=== PATIENT | male | born 1980 | race Caucasian/White ===

== ENCOUNTER 2022-10-07 12:56 | Emergency (ER) | payer SELFPAY ==
[~2022-10-07] VITALS: Ht 180 cm; Wt 72.5 kg
[2022-10-07] MEDS ORDERED: NS IV 1000 ML 1,000 ML IV STA ×2 (13:30→15:46)
[2022-10-07] MEDS ORDERED: fentaNYL INJ 100 MCG/2 ML AMP IVP STA (13:30)
--- NOTE | 2022-10-07 13:35 | ED Abdominal Pain ---
General Chief Complaint: Abdominal/GI Problems Stated Complaint: ABD PAIN Nursing Triage Note: PT PRESENTS TO ED WITH COMPLAINTS OF ABD PAIN THAT RADIATES TOHIS BACK THAT WOKE HIM UP THIS AM. PT DENIES URINARY S/S AND REPORTS NORMAL BM. PT STATES OVER THE PAST 1-2 WEEKS HE HAD DULL MILD ABD PAIN. Source of Information: Patient Exam Limitations: No Limitations (SYBIL WHITING) History of Present Illness Date Seen by Provider: Oct 07, 2022 Time Seen by Provider: 13:32 Initial Comments Patient is a 42-year-old male who presents ED with abdominal pain. Abdominal pain started 2 weeks ago dull constant pain in his lower abdomen. This pain increased this morning. Described as sharp radiating from left lower quadrant to the right lower quadrant and into the back. Pain has been constant. Slightly diaphoretic. Patient was brought to ED by EMS. Patient reports taking Aleve over the past 2 weeks. Denies of any dysuria, hematuria, increased urine frequency, vomiting, diarrhea. Patient denies history of previous abdominal surgery. Patient seems uncomfortable. Denies history of kidney stones. History of appendectomy (SYBIL WHITING) Allergies and Home Medications Allergies Coded Allergies: No Known Drug Allergies (Unverified , 10/07/22) Patient Home Medication List Home Medication List Reviewed: Yes (SYBIL WHITING) Hydrocodone/Acetaminophen (Hydrocodone-Acetamin 5-325 mg) 5 Mg-325 Mg Tablet, 1 TAB PO Q4H PRN for PAIN-MODERATE (5-7) Prescribed by: STORM TOPETE on 10/07/22 1632 Ondansetron (Ondansetron Odt) 4 Mg Tab.rapdis, 4 MG SL Q4H PRN for NAUSEA/VOMITING Prescribed by: STORM TOPETE on 10/07/22 163 Tamsulosin HCl (Flomax) 0.4 Mg Cap, 0.4 MG PO DAILY Prescribed by: STORM TOPETE on 10/07/22 1632 Review of Systems Review of Systems Constitutional: No chills, No diaphoresis; malaise EENTM: No Blurred Vision, No Double Vision, No Eye Pain Respiratory: Denies Cough, Denies Orthopnea Cardiovascular: Denies Chest Pain Gastrointestinal: Abdominal Pain; Denies Diarrhea, Denies Nausea, Denies Vomiting Genitourinary: Denies Burning, Denies Discharge, Denies Drainage, Denies Frequency; Flank Pain Musculoskeletal: back pain; No joint pain Skin: No change in color, No change in hair/nails (SYBIL WHITING) All Other Systems Reviewed Negative Unless Noted: Yes (SYBIL WHITING) Past Nmlqtxv-Khkwvw-Vdjkqb Hx Patient Social History Tobacco Use?: Yes Tobacco type used: Cigarettes Smokeless Tobacco Frequency: Current Someday User E-Cig or Vaping type used: Nicotine Use of E-Cig and/or Vaping Dheeraj: Current Someday User Substance use?: Yes Substance type: Marijuana Alcohol Use?: Yes Alcohol Frequency: Couple times a week Pt feels they are or have been: No (SYBIL WHITING) Past Medical History Surgery/Hospitalization HX: SX: APPY (SYBIL WHITING) Physical Exam Vital Signs Vital Signs - First Documented 10/07/22 13:00 Temp 36.0 Pulse 91 Resp 16 B/P (MAP) 150/96 (114) Pulse Ox 95 (BEN ROMAN MD) Vital Signs Capillary Refill : Less Than 3 Seconds (SYBIL WHITING) Height/Weight/BMI Height: '" Weight: lbs. oz. 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, no motor/sensory deficits, alert, normal mood/affect, oriented x 3 (SYBIL WHITING) Progress/Results/Core Measures Results/Orders Lab Results Laboratory Tests Test 10/07/22 13:03 10/07/22 15:58 Range/Units White Blood Count 4.6 4.3-11.0 10^3/uL Red Blood Count 4.58 4.30-5.52 10^6/uL Hemoglobin 14.1 13.3-17.7 g/dL Hematocrit 42 40-54 % Mean Corpuscular Volume 92 80-99 fL Mean Corpuscular Hemoglobin 31 25-34 pg Mean Corpuscular Hemoglobin Concent 34 32-36 g/dL Red Cell Distribution Width 14.0 10.0-14.5 % Platelet Count 157 130-400 10^3/uL Mean Platelet Volume 10.2 9.0-12.2 fL Immature Granulocyte % (Auto) 0 % Neutrophils (%) (Auto) 45 42-75 % Lymphocytes (%) (Auto) 33 12-44 % Monocytes (%) (Auto) 17 H 0-12 % Eosinophils (%) (Auto) 4 0-10 % Basophils (%) (Auto) 1 0-10 % Neutrophils # (Auto) 2.1 1.8-7.8 10^3/uL Lymphocytes # (Auto) 1.5 1.0-4.0 10^3/uL Monocytes # (Auto) 0.8 0.0-1.0 10^3/uL Eosinophils # (Auto) 0.2 0.0-0.3 10^3/uL Basophils # (Auto) 0.0 0.0-0.1 10^3/uL Immature Granulocyte # (Auto) 0.0 0.0-0.1 10^3/uL Sodium Level 138 135-145 MMOL/L Potassium Level 4.1 3.6-5.0 MMOL/L Chloride Level 103 98-107 MMOL/L Carbon Dioxide Level 23 21-32 MMOL/L Anion Gap 12 5-14 MMOL/L Blood Urea Nitrogen 15 7-18 MG/DL Creatinine 0.92 0.60-1.30 MG/DL Estimat Glomerular Filtration Rate 107 BUN/Creatinine Ratio 16 Glucose Level 116 H 70-105 MG/DL Calcium Level 9.0 8.5-10.1 MG/DL Corrected Calcium 9.6 8.5-10.1 MG/DL Total Bilirubin 0.4 0.1-1.0 MG/DL Aspartate Amino Transf (AST/SGOT) 205 H 5-34 U/L Alanine Aminotransferase (ALT/SGPT) 125 H 0-55 U/L Alkaline Phosphatase 117 40-136 U/L Total Protein 8.5 H 6.4-8.2 GM/DL Albumin 3.2 3.2-4.5 GM/DL Lipase 105 H 8-78 U/L Serum Alcohol 137 H <10 MG/DL Urine Color YELLOW Urine Clarity CLEAR Urine pH 6.0 5-9 Urine Specific [place] <=1.005 1.016-1.022 Urine Protein NEGATIVE NEGATIVE Urine Glucose (UA) NEGATIVE NEGATIVE Urine Ketones NEGATIVE NEGATIVE Urine Nitrite NEGATIVE NEGATIVE Urine Bilirubin NEGATIVE NEGATIVE Urine Urobilinogen 0.2 < = 1.0 MG/DL Urine Leukocyte Esterase NEGATIVE NEGATIVE Urine RBC (Auto) 2+ H NEGATIVE Urine RBC 0-2 /HPF Urine WBC NONE /HPF Urine Crystals PRESENT H /LPF Urine Calcium Oxalate Crystals MODERATE H /LPF Urine Amorphous Sediment FEW KAYLIN URATES H /LPF Urine Bacteria NEGATIVE /HPF Urine Casts PRESENT /LPF Urine Hyaline Casts RARE /LPF Urine Mucus SMALL H /LPF Urine Culture Indicated NO Urine Opiates Screen NEGATIVE NEGATIVE Urine Oxycodone Screen NEGATIVE NEGATIVE Urine Methadone Screen NEGATIVE NEGATIVE Urine Propoxyphene Screen NEGATIVE NEGATIVE Urine Barbiturates Screen NEGATIVE NEGATIVE Ur Tricyclic Antidepressants Screen NEGATIVE NEGATIVE Urine Phencyclidine Screen NEGATIVE NEGATIVE Urine Amphetamines Screen POSITIVE H NEGATIVE Urine Methamphetamines Screen POSITIVE H NEGATIVE Urine Benzodiazepines Screen NEGATIVE NEGATIVE Urine Cocaine Screen NEGATIVE NEGATIVE Urine Cannabinoids Screen POSITIVE H NEGATIVE (BEN ROMAN MD) Vital Signs/I&O 10/07/22 10/07/22 13:00 16:38 Temp 36.0 Pulse 91 76 Resp 16 16 B/P (MAP) 150/96 (114) 128/91 Pulse Ox 95 95 (BEN ROMAN MD) Blood Pressure Mean: 114 Departure Communication (PCP) Reviewed previous ER visits, H&P, lab testing. Patient with with lower abdominal pain for the past 2 weeks. This pain became worse today sharp shooting to the left flank. No vomiting but reports nausea. No history of previous abdominal surgery. No urinary symptoms. Differential diagnosis, cystitis, urolithiasis, nephrolithiasis, colitis. CBC, CMP grossly unremarkable. Normal white blood count, kidney function. Slight elevated liver enzymes AST 205, ALT 125. Lipase 105. He has no upper abdominal pain or pain with eating. Urinalysis positive hematuria. History of alcohol use. States he drank 2 beers last night. Alcohol 137. Received [address] abdomen pelvis shows a distal left ureter obstructing stone 3 mm with small to moderate amount of hydronephrosis. Urinalysis without evidence of infection. Patient was given Toradol and fentanyl with improvement of pain. Currently pain-free. Patient request to be discharged. Will discharge with Flomax, pain medication and nausea medication. Urology outpatient follow-up within the next week for reevaluation. If any worsening pain, passing of blood clots to return back to ED. Positive for methamphetamine and THC. Discussed clear liquids for the next 2 or 3 days. Likely chronically elevated lipase and liver enzymes. CT abdomen pelvis noted hepatomegaly recheck with primary care physician of lab work in the next 2 days. (SYBIL WHITING) Impression Primary Impression: Ureterolithiasis Additional Impression: Pancreatitis Disposition: 01 HOME, SELF-CARE Condition: Stable Departure-Patient Inst. Decision time for Depature: 14:57 (SYBIL WHITING) Referrals: [facility],LOCAL PHYSICIAN (PCP) Primary Care Physician Patient Instructions: Kidney stones in adults Add. Discharge Instructions: Recommend following up with [facility] urology [id number]. Take pain medication as prescribed. Flomax to help urinate. Drink plenty water. If any worsening pain, fever to return back to ED. All discharge instructions reviewed with patient and/or family. Voiced understanding. Scripts Ondansetron (Ondansetron Odt) 4 Mg Tab.rapdis 4 MG SL Q4H PRN for NAUSEA/VOMITING, #6 TAB Prov: SYBIL WHITING 10/07/22 Hydrocodone/Acetaminophen (Hydrocodone-Acetamin 5-325 mg) 5 Mg-325 Mg Tablet 1 TAB PO Q4H PRN for PAIN-MODERATE (5-7), #8 TAB Prov: SYBIL WHITING 10/07/22 Tamsulosin HCl (Flomax) 0.4 Mg Cap 0.4 MG PO DAILY, #20 CAP Prov: SYBIL WHITING 10/07/22 ATTENDING PHYSICIAN NOTE: I was physically present as attending physician in the emergency department during the care of this patient, but I was not directly involved in the decision making or delivery of care for this patient. (BEN ROMAN MD) SYBIL WHITING Oct 07, 2022 13:35 BEN ROMAN MD Oct 08, 2022 12:06
[2022-10-07 13:39] LABS: ALBUMIN 3.2 GM/DL (3.2-4.5); POTASSIUM 4.1 MMOL/L (3.6-5.0)
[2022-10-07 13:41] LABS: TOTAL PROTEIN 8.5 GM/DL (6.4-8.2)
[2022-10-07 13:43] LABS: BILIRUBIN,TOTAL 0.4 MG/DL (0.1-1.0)
[2022-10-07 13:45] LABS: CREATININE SERUM 0.92 MG/DL (0.60-1.30)
[2022-10-07 13:46] LABS: BASOPHILS % (AUTO) 1 % (0-10); EOSINOPHILS # (AUTO) 0.2 10^3/uL (0.0-0.3); EOSINOPHILS % (AUTO) 4 % (0-10); HEMATOCRIT 42 % (40-54); HEMOGLOBIN 14.1 g/dL (13.3-17.7); LYMPHOCYTES # (AUTO) 1.5 10^3/uL (1.0-4.0); LYMPHOCYTES % (AUTO) 33 % (12-44); MEAN CORPUSCULAR HEMOGLOBIN 31 pg (25-34); MEAN CORPUSCULAR HGB CONC 34 g/dL (32-36); MEAN CORPUSCULAR VOLUME 92 fL (80-99); MEAN PLATELET VOLUME 10.2 fL (9.0-12.2); MONOCYTES # (AUTO) 0.8 10^3/uL (0.0-1.0); MONOCYTES % (AUTO) 17 % (0-12); NEUTROPHILS # (AUTO) 2.1 10^3/uL (1.8-7.8); NEUTROPHILS % (AUTO) 45 % (42-75); PLATELET COUNT 157 10^3/uL (130-400); WHITE BLOOD COUNT 4.6 10^3/uL (4.3-11.0)
[2022-10-07] MEDS ORDERED: NS 100 ML (IVPB) BAG IV ONE (14:00)
[2022-10-07] MEDS ORDERED: IOHEXOL 350 MG/ML 100 ML (OMNIPAQUE 350) VIAL IV ONE (14:00)
--- NOTE | 2022-10-07 14:30 | Diagnostic Imaging Report ---
PROCEDURE: CT abdomen and pelvis with contrast. TECHNIQUE: Multiple contiguous axial images were obtained through the abdomen and pelvis after administration of intravenous contrast. Auto Exposure Controls were utilized during the CT exam to meet ALARA standards for radiation dose reduction. All CT scans use one or more of the following dose optimizing techniques: automated exposure control, MA and/or KvP adjustment based on patient size and exam type or iterative reconstruction. INDICATION: 42-year-old male, severe abdominal pain, shortness of air, confusion. CORRELATION STUDY: None. FINDINGS: LOWER THORAX: Clear. Heart size is normal. Small esophageal hernia with minimal wall thickening of the gastroesophageal junction. LIVER: Borderline enlarged at 19.3 cm. Moderate steatosis. No definitive focal lesion. GALLBLADDER: Present and unremarkable. No bile duct dilatation. SPLEEN: Unremarkable. PANCREAS: Unremarkable. ADRENAL GLANDS: Unremarkable. KIDNEYS: 3 mm calcification in the distal left ureter just proximal to the UVJ currently results in cnrv-qc-rhwgtlty left-sided hydroureteronephrosis. Otherwise, normal enhancement of the left kidney. Right kidney and collecting system are unremarkable. ABDOMINAL AORTA: Unremarkable, nonaneurysmal. GASTROINTESTINAL TRACT: Stomach is moderately distended with retained gastric contents, perhaps recent meal ingestion. No small bowel obstruction. Mild stool through the colon. Appendix is not visualized. No abdominal ascites and/or free air. URINARY BLADDER: Relatively decompressed, unremarkable. REPRODUCTIVE: Prostate gland is unremarkable. OSSEOUS STRUCTURES: Advanced degenerative changes of the visualized lower lumbar disc levels. No acute bony abnormality. OTHER: None. IMPRESSION: 1. 3 mm stone in the distal left ureter results in currently rpaw-vz-vtulxcki left-sided obstruction. 2. Borderline hepatomegaly with moderate steatosis. Dictated by: Dictated on workstation # [id number]
[2022-10-07] MEDS ORDERED: KETOROLAC 30 MG/ML VIAL IVP ONE (14:45)
[2022-10-07 16:03] LABS: BILIRUBIN,URINE NEGATIVE (NEGATIVE); CLARITY,URINE CLEAR; COLOR,URINE YELLOW; GLUCOSE, URINE (UA) NEGATIVE (NEGATIVE); KETONES,URINE NEGATIVE (NEGATIVE); LEUKOCYTE ESTERASE ,URINE NEGATIVE (NEGATIVE); NITRITE,URINE NEGATIVE (NEGATIVE); PROTEIN,URINE NEGATIVE (NEGATIVE)
[2022-10-07 16:18] LABS: AMPHETAMINE SCREEN, URINE POSITIVE (NEGATIVE); BARBITURATE SCREEN URINE NEGATIVE (NEGATIVE); BENZODIAZEPINES SCREEN URINE NEGATIVE (NEGATIVE); CANNABINOID SCREEN, URINE POSITIVE (NEGATIVE); COCAINE SCREEN URINE NEGATIVE (NEGATIVE); METHADONE STAT NEGATIVE (NEGATIVE); OPIATE SCREEN URINE NEGATIVE (NEGATIVE); OXYCODONE STAT NEGATIVE (NEGATIVE); PROPOXYPHENE STAT NEGATIVE (NEGATIVE); TRICYCLIC ANTIDEPRESSANTS SCRE NEGATIVE (NEGATIVE)
[2022-10-07 16:23] LABS: BACTERIA,URINE NEGATIVE /HPF; RBC,URINE 0-2 /HPF
[2022-10-07 16:24] LABS: AMORPHOUS SEDIMENT,UR FEW AMOR URATES /LPF; CALCIUM OXALATE CRYSTALS,UR MODERATE /LPF; HYALINE CASTS, URINE RARE /LPF
[2022-10-07] MEDS ORDERED: TMSL.4C PO (16:32)
[2022-10-07] MEDS ORDERED: ONDA4TAB11 SL (16:32)
[2022-10-07] MEDS ORDERED: ACHD5005 PO (16:32)
[2022-10-07 16:38] VITALS: BP 128/91
== END 2022-10-07 16:41 | disposition home or self-care (01) ==
LOC: ER 12:59
DX: N13.2 Hydronephrosis with renal and ureteral calculous obstruction (principal); K85.90 Acute pancreatitis without necrosis or infection, unspecified; R16.0 Hepatomegaly, not elsewhere classified; F17.210 Nicotine dependence, cigarettes, uncomplicated; F17.290 Nicotine dependence, other tobacco product, uncomplicated; Z90.49 Acquired absence of other specified parts of digestive tract; Z28.310 Unvaccinated for COVID-19
CPT/HCPCS: 74177; 80053; 80306; 81000; 83690; 85025; 99284; G0480; 36415; 80320

== ENCOUNTER 2022-12-02 17:23 | Emergency (ER) | payer SELFPAY ==
[~2022-12-02 17:23] MED LIST: ACHD5005 PO; ONDA4TAB11 SL; TMSL.4C PO
--- NOTE | 2022-12-02 17:42 | ED Psychosocial ---
General Chief Complaint: Suicidal Ideation Risk Stated Complaint: PSYCH Source: patient Exam Limitations: no limitations (SYBIL WHITING) History of Present Illness Date Seen by Provider: Dec 02, 2022 Time Seen by Provider: 17:40 Initial Comments Patient is a 42-year-old male who presents to the ED via EMS for increased depression, anxiety with SI. Patient states he has been dealing with anxiety and depression for several years as well as SI. Patient states he has had plans of SI in the past. Today he reports wanting to walk and drop . He has a history of overdose in the past. Recently moved to the area from [place]. Not currently established. States increased anxiety at home. He is currently to his who he states has been there for him during this process. He states he was diagnosed with bipolar in the past and was placed on Seroquel but developed large amount of weight and stopped medication. He states he has been on Effexor as well. Not currently on any type of medication for the past 2 years. Denies any drug use or alcohol use. Denies any current chest pain, shortness of breath, nausea, vomiting, diarrhea. Patient reports SI but denies of any specific plan at this time. No active hallucinations (SYBIL WHITING) Allergies and Home Medications Allergies Coded Allergies: No Known Drug Allergies (Unverified , 10/07/22) Patient Home Medication List Home Medication List Reviewed: Yes (SYBIL WHITING) Hydrocodone/Acetaminophen (Hydrocodone-Acetamin 5-325 mg) 5 Mg-325 Mg Tablet, 1 TAB PO Q4H PRN for PAIN-MODERATE (5-7) Prescribed by: STORM TOPETE on 10/07/22 163 Lorazepam (Ativan) 0.5 Mg Tablet, 0.5 MG PO UD Prescribed by: BEN PARSONS on 12/03/22 1100 Ondansetron (Ondansetron Odt) 4 Mg Tab.rapdis, 4 MG SL Q4H PRN for NAUSEA/VOMITING Prescribed by: STORM TOPETE on 10/07/22 163 Tamsulosin HCl (Flomax) 0.4 Mg Cap, 0.4 MG PO DAILY Prescribed by: STORM TOPETE on 10/07/22 1632 Review of Systems Constitutional: No chills, No diaphoresis EENTM: No hearing loss, No ear pain, No blurred vision Respiratory: No no symptoms reported, No cough, No dyspnea on exertion Cardiovascular: No chest pain Gastrointestinal: No abdominal pain, No diarrhea, No nausea, No vomiting Genitourinary: No decreased output, No discharge Musculoskeletal: No back pain, No joint pain Skin: No change in color, No change in hair/nails Psychiatric/Neurological: Anxiety, Depressed (SYBIL WHITING) All Other Systems Reviewed Negative Unless Noted: Yes (SYBIL WHITING) Past Gyascbf-Wzlzdj-Xdmgva Hx Past Medical History Surgery/Hospitalization HX: SX: APPY (SYBIL WHITING) Physical Exam Vital Signs - First Documented 12/02/22 12/03/22 17:24 05:00 Temp 36.6 Pulse 92 Resp 18 B/P (MAP) 155/90 (111) Pulse Ox 98 O2 Delivery Room Air (BEN ROMAN MD) Capillary Refill : (SYBIL WHITING) Height, Weight, BMI Height: '" Weight: lbs. oz. 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, no motor/sensory deficits, alert, normal mood/affect, oriented x 3 Appearance/Memory: appropriate appearance, appropriate insight Behavior/Eye Contact: cooperative, good eye contact Thoughts/Hallucinations: normal thought pattern; No tactile hallucinations, No visual hallucinations Skin: normal color, warm/dry (SYBIL WHITING) Progress/Results/Core Measures Results/Orders Lab Results Laboratory Tests Test 12/02/22 17:39 12/02/22 17:41 12/02/22 17:47 12/02/22 22:36 Range/Units Urine Color YELLOW Urine Clarity CLEAR Urine pH 6.0 5-9 Urine Specific [place] <=1.005 1.016-1.022 Urine Protein NEGATIVE NEGATIVE Urine Glucose (UA) NEGATIVE NEGATIVE Urine Ketones NEGATIVE NEGATIVE Urine Nitrite NEGATIVE NEGATIVE Urine Bilirubin NEGATIVE NEGATIVE Urine Urobilinogen 0.2 < = 1.0 MG/DL Urine Leukocyte Esterase NEGATIVE NEGATIVE Urine RBC (Auto) NEGATIVE NEGATIVE Urine RBC NONE /HPF Urine WBC NONE /HPF Urine Crystals NONE /LPF Urine Bacteria NEGATIVE /HPF Urine Casts NONE /LPF Urine Mucus NEGATIVE /LPF Urine Culture Indicated NO Urine Opiates Screen NEGATIVE NEGATIVE Urine Oxycodone Screen NEGATIVE NEGATIVE Urine Methadone Screen NEGATIVE NEGATIVE Urine Propoxyphene Screen NEGATIVE NEGATIVE Urine Barbiturates Screen NEGATIVE NEGATIVE Ur Tricyclic Antidepressants Screen NEGATIVE NEGATIVE Urine Phencyclidine Screen NEGATIVE NEGATIVE Urine Amphetamines Screen NEGATIVE NEGATIVE Urine Methamphetamines Screen NEGATIVE NEGATIVE Urine Benzodiazepines Screen NEGATIVE NEGATIVE Urine Cocaine Screen NEGATIVE NEGATIVE Urine Cannabinoids Screen POSITIVE H NEGATIVE Influenza Type A (RT-PCR) Not Detected Not Detecte Influenza Type B (RT-PCR) Not Detected Not Detecte SARS-CoV-2 RNA (RT-PCR) Not Detected Not Detecte White Blood Count 4.9 4.3-11.0 10^3/uL Red Blood Count 4.93 4.30-5.52 10^6/uL Hemoglobin 14.8 13.3-17.7 g/dL Hematocrit 44 40-54 % Mean Corpuscular Volume 90 80-99 fL Mean Corpuscular Hemoglobin 30 25-34 pg Mean Corpuscular Hemoglobin Concent 34 32-36 g/dL Red Cell Distribution Width 12.4 10.0-14.5 % Platelet Count 204 130-400 10^3/uL Mean Platelet Volume 10.0 9.0-12.2 fL Immature Granulocyte % (Auto) 0 % Neutrophils (%) (Auto) 31 L 42-75 % Lymphocytes (%) (Auto) 51 H 12-44 % Monocytes (%) (Auto) 14 H 0-12 % Eosinophils (%) (Auto) 3 0-10 % Basophils (%) (Auto) 0 0-10 % Neutrophils # (Auto) 1.5 L 1.8-7.8 10^3/uL Lymphocytes # (Auto) 2.5 1.0-4.0 10^3/uL Monocytes # (Auto) 0.7 0.0-1.0 10^3/uL Eosinophils # (Auto) 0.2 0.0-0.3 10^3/uL Basophils # (Auto) 0.0 0.0-0.1 10^3/uL Immature Granulocyte # (Auto) 0.0 0.0-0.1 10^3/uL Sodium Level 144 135-145 MMOL/L Potassium Level 3.7 3.6-5.0 MMOL/L Chloride Level 114 H 98-107 MMOL/L Carbon Dioxide Level 22 21-32 MMOL/L Anion Gap 8 5-14 MMOL/L Blood Urea Nitrogen 9 7-18 MG/DL Creatinine 0.74 0.60-1.30 MG/DL Estimat Glomerular Filtration Rate 116 BUN/Creatinine Ratio 12 Glucose Level 88 70-105 MG/DL Calcium Level 8.7 8.5-10.1 MG/DL Corrected Calcium 8.9 8.5-10.1 MG/DL Total Bilirubin 0.3 0.1-1.0 MG/DL Aspartate Amino Transf (AST/SGOT) 172 H 5-34 U/L Alanine Aminotransferase (ALT/SGPT) 136 H 0-55 U/L Alkaline Phosphatase 92 40-136 U/L Total Protein 9.4 H 6.4-8.2 GM/DL Albumin 3.7 3.2-4.5 GM/DL Salicylates Level < 5.0 L 5.0-20.0 MG/DL Acetaminophen Level < 10 L 10-30 UG/ML Serum Alcohol 372 *H 257 H <10 MG/DL Test 12/03/22 05:08 12/03/22 07:53 Range/Units Serum Alcohol 119 H 65 H <10 MG/DL (BEN ROMAN MD) My Orders Orders - BEN ROMAN MD Alcohol (12/03/22 08:00) General/Regular (12/03/22 Breakfast) Lorazepam Tablet (Ativan Tablet) (12/03/22 08:29) Lorazepam Tablet (Ativan Tablet) (12/03/22 10:55) Lorazepam Tablet (Ativan Tablet) (12/03/22 11:47) (BEN ROMAN MD) Medications Given in ED (BEN ROMAN MD) Vital Signs/I&O (BEN ROMAN MD) Progress Progress Note #1: Time: 08:32 Progress Note I assumed care of this patient from Dr. Crespo at shift change. He needed a reduced serum alcohol to be eligible for psychiatric screening. Serum alcohol level drawn at 0800 was 65. He is not eligible for screening. Patient reports no active suicidal ideation. He reports with prior suicidal ideation his plan was to overdose on bcza-fdf-wseekih or prescription medications. His observation status has been downgraded to standard observation due to lack of present suicidal ideation and no access to his previous suicidal plan. Diet has been ordered and he is eating without problem. He is starting to have some tremors and feels like he is experiencing some alcohol withdrawal. Ativan 1 mg orally was ordered. We will watch these symptoms closely. He intends to stop alcohol consumption if he is discharged to outpatient care. Withdrawal prevention will need to be part of his discharge planning. Progress Note #2: Progress Note Patient received a screening from [facility]. Safety plan was developed. Patient currently denies any suicidal ideation. He would like to stop drinking alcohol. [facility] can help arrange medical management for withdrawal prevention during alcohol cessation. I have engaged in cooperative management with [facility]. Plan is presently for me to provide short-term prescription for Ativan to help with withdrawal prevention. Patient's significant other has agreed to help manage the medication to avoid misuse. Discharge instructions were reviewed with patient and his significant other. Discharge was discussed and coordinated with [facility] screener as well. Patient received 2 additional doses of Ativan prior to discharge. See discharge instructions for further discussion. (BEN ROMAN MD) Comment Sinus rhythm, left axis deviation, incomplete right bundle branch block, 73 bpm, QRS duration 90 MS, QTc 395 MS (SYBIL WHITING) Departure Communication (PCP) Patient with a long history of depression, anxiety and suicidal ideations. Increase stress this evening. Patient with suicidal thoughts. Made a comment that he wanted to go for a walk and "Drop ". Patient states he does not feel like he would act upon this. Has strong family support at home. Recently moved to the area from [place]. Not currently established. Patient is currently voluntary and wanting a behavioral health assessment. Discussed with patient recommend general lab work. Patient lab work was grossly unremarkable besides a slight alcohol level 372 and elevated liver enzymes AST 172, ALT 136 nonspecific but likely related to alcohol. Denies history of alcohol abuse. Patient received 2 L of fluid. Patient cannot be evaluated at this time secondary to his alcohol level. We will continue sobering patient until symptoms improved. Did receive 2 mg of Ativan this evening for feeling anxious. Patient is cooperative. No active hallucinations. Patient is currently 15- minute checks. Moderate SI risk. Patient was discussed with who took over care at 11 pm. No evidence of tremoring, hallucination, or delirium tremens (SYBIL WHITING) Impression Primary Impression: Suicidal ideation Additional Impressions: Alcohol dependence Qualified Codes: F10.229 - Alcohol dependence with intoxication, unspecified Alcohol withdrawal Qualified Codes: F10.930 - Alcohol use, unspecified with withdrawal, uncomplicated Disposition: HOME, SELF-CARE Condition: Improved Departure-Patient Inst. Referrals: NO,LOCAL PHYSICIAN (PCP/Family) Primary Care Physician Patient Instructions: Alcohol withdrawal, OUTPT MENTAL HEALTH SERVICES, Suicide Prevention Add. Discharge Instructions: Drink plenty of clear liquids to stay well-hydrated. You may use the Ativan as prescribed for alcohol withdrawal symptoms. Take 2 tablets every 4 hours as needed up to 3 doses. Then take 1 tablet every 4 hours as needed. If your symptoms are not controlled with this dosing regimen, return to care. Do not resume drinking alcohol and take Ativan both. Select one or the other. If you resume drinking alcohol, taper down on your alcohol cons umption gradually. Avoid abruptly stopping alcohol consumption as this may cause dangerous or life-threatening seizures. Follow the safety plan provided by [facility]. [facility] has a dental clinic that you may contact at [phone]. All discharge instructions reviewed with patient and/or family. Voiced understanding. Scripts Lorazepam (Ativan) 0.5 Mg Tablet 0.5 MG PO UD, #10 TAB Take 2 tablets every 4 hours as needed x3 doses then 1 tablet every 4 hours as needed for withdrawal symptoms. Prov: BEN ROMAN MD 12/03/22 SYBIL WHITING Dec 02, 2022 17:42 BEN ROMAN MD Dec 03, 2022 08:35
[2022-12-02 17:57] LABS: BILIRUBIN,URINE NEGATIVE (NEGATIVE); CLARITY,URINE CLEAR; COLOR,URINE YELLOW; GLUCOSE, URINE (UA) NEGATIVE (NEGATIVE); KETONES,URINE NEGATIVE (NEGATIVE); LEUKOCYTE ESTERASE ,URINE NEGATIVE (NEGATIVE); NITRITE,URINE NEGATIVE (NEGATIVE); PROTEIN,URINE NEGATIVE (NEGATIVE)
[2022-12-02 17:57] LABS: BASOPHILS % (AUTO) 0 % (0-10); EOSINOPHILS # (AUTO) 0.2 10^3/uL (0.0-0.3); EOSINOPHILS % (AUTO) 3 % (0-10); HEMATOCRIT 44 % (40-54); HEMOGLOBIN 14.8 g/dL (13.3-17.7); LYMPHOCYTES # (AUTO) 2.5 10^3/uL (1.0-4.0); LYMPHOCYTES % (AUTO) 51 % (12-44); MEAN CORPUSCULAR HEMOGLOBIN 30 pg (25-34); MEAN CORPUSCULAR HGB CONC 34 g/dL (32-36); MEAN CORPUSCULAR VOLUME 90 fL (80-99); MONOCYTES # (AUTO) 0.7 10^3/uL (0.0-1.0); MONOCYTES % (AUTO) 14 % (0-12); NEUTROPHILS # (AUTO) 1.5 10^3/uL (1.8-7.8); NEUTROPHILS % (AUTO) 31 % (42-75); PLATELET COUNT 204 10^3/uL (130-400); WHITE BLOOD COUNT 4.9 10^3/uL (4.3-11.0)
[2022-12-02] MEDS ORDERED: LORazepam 0.5 MG (ATIVAN) TABLET PO STA ×2 (17:58→20:05)
[2022-12-02 18:05] LABS: BACTERIA,URINE NEGATIVE /HPF
[2022-12-02 18:07] LABS: ALBUMIN 3.7 GM/DL (3.2-4.5); CHLORIDE 114 MMOL/L (98-107); POTASSIUM 3.7 MMOL/L (3.6-5.0); SODIUM 144 MMOL/L (135-145)
[2022-12-02 18:08] LABS: CALCIUM 8.7 MG/DL (8.5-10.1)
[2022-12-02 18:09] LABS: GLUCOSE 88 MG/DL (70-105)
[2022-12-02 18:10] LABS: CARBON DIOXIDE 22 MMOL/L (21-32); TOTAL PROTEIN 9.4 GM/DL (6.4-8.2)
[2022-12-02 18:11] LABS: BILIRUBIN,TOTAL 0.3 MG/DL (0.1-1.0)
[2022-12-02 18:13] LABS: ALKALINE PHOSPHATASE 92 U/L (40-136); CREATININE SERUM 0.74 MG/DL (0.60-1.30); GFR ESTIMATED 116
[2022-12-02 18:13] LABS: AMPHETAMINE SCREEN, URINE NEGATIVE (NEGATIVE); BARBITURATE SCREEN URINE NEGATIVE (NEGATIVE); BENZODIAZEPINES SCREEN URINE NEGATIVE (NEGATIVE); CANNABINOID SCREEN, URINE POSITIVE (NEGATIVE); COCAINE SCREEN URINE NEGATIVE (NEGATIVE); METHADONE STAT NEGATIVE (NEGATIVE); OPIATE SCREEN URINE NEGATIVE (NEGATIVE); OXYCODONE STAT NEGATIVE (NEGATIVE); PROPOXYPHENE STAT NEGATIVE (NEGATIVE); TRICYCLIC ANTIDEPRESSANTS SCRE NEGATIVE (NEGATIVE)
[2022-12-02 18:15] LABS: BUN/CREATININE RATIO 12
[2022-12-02 18:16] LABS: ACETAMINOPHEN < 10 UG/ML (10-30); ALANINE AMINOTRANSFERASE 136 U/L (0-55); SALICYLATE < 5.0 MG/DL (5.0-20.0)
[2022-12-02] MEDS ORDERED: NS IV 1000 ML 1,000 ML IV STA ×2 (18:20→21:27)
[2022-12-03] MEDS ORDERED: ALPRAZolam 1 MG TABLET PO ONE (05:45)
[2022-12-03] MEDS ORDERED: LORazepam 0.5 MG (ATIVAN) TABLET PO STA ×3 (08:29→11:47)
[2022-12-03] MEDS ORDERED: LORA-404 PO (10:59)
[2022-12-03 12:01] VITALS: BP 137/102
== END 2022-12-03 12:01 | disposition home or self-care (01) ==
LOC: EDUNIT# 17:23 → ER 17:24
DX: F10.239 Alcohol dependence with withdrawal, unspecified (principal); R45.851 Suicidal ideations; F31.9 Bipolar disorder, unspecified; Y90.8 Blood alcohol level of 240 mg/100 ml or more; Z91.148 Patient's other noncompliance with medication regimen for other reason; Z20.822 Contact with and (suspected) exposure to COVID-19; Z79.899 Other long term (current) drug therapy
CPT/HCPCS: 80053; 80306; 81000; 85025; 87636; 93005; 93041; 99284; G0480 ×4; 36415; 80320; 80329

== ENCOUNTER 2022-12-04 15:47 | Emergency (ER) | payer SELFPAY ==
[~2022-12-04 15:47] MED LIST changes: +LORA-404 PO
[2022-12-04] MEDS ORDERED: diphenhydrAMINE INJ 50 MG/ML VIAL IVP ONE (16:00)
--- NOTE | 2022-12-04 16:08 | ED Psychosocial ---
General Chief Complaint: Psych/Social Disorder Stated Complaint: PSYCH Source: patient, family () Exam Limitations: no limitations History of Present Illness Date Seen by Provider: Dec 04, 2022 Time Seen by Provider: 15:52 Initial Comments 42-year-old male presents to the emergency department today for involuntary twitching motions of his upper and lower extremities, face. He was seen in the emergency department yesterday for some passive suicidal thoughts and anxiety. He was started on Ativan for alcohol withdrawal. He began to have the twitching motions to date. He was advised to come back to the emergency department if he were to have a reaction to medications. He denies any current suicidal actions or thoughts. All other systems reviewed and negative except documented per HPI. Voice recognition software was used to help create this chart Allergies and Home Medications Allergies Coded Allergies: No Known Drug Allergies (Unverified , 10/07/22) Patient Home Medication List Home Medication List Reviewed: Yes Hydrocodone/Acetaminophen (Hydrocodone-Acetamin 5-325 mg) 5 Mg-325 Mg Tablet, 1 TAB PO Q4H PRN for PAIN-MODERATE (5-7) Prescribed by: STORM TOPETE on 10/07/22 1632 Lorazepam (Ativan) 0.5 Mg Tablet, 0.5 MG PO UD Prescribed by: BEN PARSONS on 12/03/22 1100 Ondansetron (Ondansetron Odt) 4 Mg Tab.rapdis, 4 MG SL Q4H PRN for NAUSEA/VOMITING Prescribed by: STORM TOPETE on 10/07/22 1632 Tamsulosin HCl (Flomax) 0.4 Mg Cap, 0.4 MG PO DAILY Prescribed by: STORM TOPETE on 10/07/22 1632 Review of Systems Constitutional: see HPI Past Irayahq-Mhibwx-Gamhdd Hx Patient Social History Tobacco Use?: Yes Use of E-Cig and/or Vaping dev: No Substance use?: No Alcohol Use?: No Pt feels they are or have been: Unable to obtain Past Medical History Surgery/Hospitalization HX: SX: APPY, depression, anxiety Physical Exam Vital Signs - First Documented 12/04/22 15:50 Temp 36.5 Pulse 93 Resp 20 B/P (MAP) 134/93 (107) Pulse Ox 94 O2 Delivery Room Air Capillary Refill : Height, Weight, BMI Height: '" Weight: lbs. oz. kg; BMI Method: General Appearance: WD/WN, no apparent distress HEENT: normal ENT inspection, pharynx normal Neck: non-tender Respiratory: chest non-tender, lungs clear, normal breath sounds, no respiratory distress, no accessory muscle use Cardiovascular: regular rate, rhythm, no murmur Gastrointestinal: normal bowel sounds, non tender, soft Extremities: normal range of motion, non-tender, normal inspection, no pedal edema, no calf tenderness, normal capillary refill, other (Apparent involuntary, intermittent and very brief contractions of bilateral upper extremities) Neurologic/Psychiatric: no motor/sensory deficits, alert, normal mood/affect, oriented x 3 Skin: normal color, warm/dry Progress/Results/Core Measures Results/Orders Lab Results Laboratory Tests Test 12/04/22 16:40 12/04/22 16:56 Range/Units White Blood Count 2.7 L 4.3-11.0 10^3/uL Red Blood Count 4.38 4.30-5.52 10^6/uL Hemoglobin 13.3 13.3-17.7 g/dL Hematocrit 39 L 40-54 % Mean Corpuscular Volume 90 80-99 fL Mean Corpuscular Hemoglobin 30 25-34 pg Mean Corpuscular Hemoglobin Concent 34 32-36 g/dL Red Cell Distribution Width 12.2 10.0-14.5 % Platelet Count 163 130-400 10^3/uL Mean Platelet Volume 10.0 9.0-12.2 fL Immature Granulocyte % (Auto) 0 % Neutrophils (%) (Auto) 28 L 42-75 % Lymphocytes (%) (Auto) 48 H 12-44 % Monocytes (%) (Auto) 17 H 0-12 % Eosinophils (%) (Auto) 6 0-10 % Basophils (%) (Auto) 1 0-10 % Neutrophils # (Auto) 0.8 L 1.8-7.8 10^3/uL Lymphocytes # (Auto) 1.3 1.0-4.0 10^3/uL Monocytes # (Auto) 0.5 0.0-1.0 10^3/uL Eosinophils # (Auto) 0.2 0.0-0.3 10^3/uL Basophils # (Auto) 0.0 0.0-0.1 10^3/uL Immature Granulocyte # (Auto) 0.0 0.0-0.1 10^3/uL Sodium Level 144 135-145 MMOL/L Potassium Level 3.7 3.6-5.0 MMOL/L Carbon Dioxide Level 23 21-32 MMOL/L Anion Gap 9 5-14 MMOL/L Blood Urea Nitrogen 5 L 7-18 MG/DL Creatinine 0.69 0.60-1.30 MG/DL Estimat Glomerular Filtration Rate 118 BUN/Creatinine Ratio 7 Glucose Level 91 70-105 MG/DL Calcium Level 8.5 8.5-10.1 MG/DL Corrected Calcium 9.1 8.5-10.1 MG/DL Total Bilirubin 0.3 0.1-1.0 MG/DL Aspartate Amino Transf (AST/SGOT) 159 H 5-34 U/L Alanine Aminotransferase (ALT/SGPT) 121 H 0-55 U/L Alkaline Phosphatase 86 40-136 U/L Total Protein 8.5 H 6.4-8.2 GM/DL Albumin 3.2 3.2-4.5 GM/DL My Orders Orders - ANATOLY SHARPE DO Diphenhydramine Injection (Diphenhydram (12/04/22 16:00) Phenobarbital Injection (Phenobarbital I (12/04/22 16:30) Ua Culture If Indicated (12/04/22 16:32) Cbc With Automated Diff (12/04/22 16:32) Comprehensive Metabolic Panel (12/04/22 16:32) Alcohol (12/04/22 16:32) Drug Screen Stat (Urine) (12/04/22 16:32) Acetaminophen (12/04/22 16:32) Salicylate (12/04/22 16:32) Ed Iv/Invasive Line Start (12/04/22 16:32) Bh Status Checks/Observation O Q15M (12/04/22 16:32) Ed Iv/Invasive Line Start (12/04/22 16:32) Medications Given in ED Current Medications Medications Dose Ordered Sig/Inga Route Start Time Stop Time Status Last Admin Dose Admin Diphenhydramine HCl 50 mg ONCE ONCE IVP 12/04/22 16:00 12/04/22 16:01 DC 12/04/22 16:13 50 MG Vital Signs/I&O 12/04/22 15:50 Temp 36.5 Pulse 93 Resp 20 B/P (MAP) 134/93 (107) Pulse Ox 94 O2 Delivery Room Air Departure Communication (Admissions) Patient initially appears to be having a dystonic reaction. I gave him some IV Benadryl initially which did not seem to help. When looking through his records I noticed that the only medicine he started on was Ativan. He is not taking any SSRI or antianxiety lytics. It makes this much less likely a dystonic reaction and upon further evaluation he does seem to stop these movements intermittently and then willingly start them again, especially when his comes back into the room and he gets irritated. This could be a conversion disorder. Without I had the mental health team come back to evaluate him. He again denies any suicidal, homicidal thoughts or ideation at this time. They believe he is safe to go home and they told me this verbally prior to leaving the department. I spoke again with the patient and they are agreeable to this. I will give him some IV phenobarbital to once again help with withdrawal type symptoms, just a one-time small dose. His is trying to encourage him to go into alcohol rehab but the patient states he does not really want to at this time. His labs are stable from yesterday's evaluation. He will be discharged home in stable condition. Advised to discontinue Ativan. Impression Primary Impression: Dystonia Disposition: 01 HOME, SELF-CARE Condition: Stable Departure-Patient Inst. Referrals: NO,LOCAL PHYSICIAN (PCP/Family) Primary Care Physician Patient Instructions: Dystonia Add. Discharge Instructions: Please stop taking the Ativan. You have been provided a shot of medicine that should help with withdrawal symptoms. This may make you sleepy so do not drive or make important decisions while you are taking continue to work with mental health providers to find a medicine that helps with your depression, anxiety symptoms. Return to the emergency department for any severe concerns. All discharge instructions reviewed with patient and/or family. Voiced understanding. ANATOLY SHARPE DO Dec 04, 2022 16:08
[2022-12-04 16:47] LABS: BASOPHILS % (AUTO) 1 % (0-10); EOSINOPHILS # (AUTO) 0.2 10^3/uL (0.0-0.3); EOSINOPHILS % (AUTO) 6 % (0-10); HEMATOCRIT 39 % (40-54); HEMOGLOBIN 13.3 g/dL (13.3-17.7); LYMPHOCYTES # (AUTO) 1.3 10^3/uL (1.0-4.0); LYMPHOCYTES % (AUTO) 48 % (12-44); MEAN CORPUSCULAR HEMOGLOBIN 30 pg (25-34); MEAN CORPUSCULAR HGB CONC 34 g/dL (32-36); MEAN CORPUSCULAR VOLUME 90 fL (80-99); MONOCYTES # (AUTO) 0.5 10^3/uL (0.0-1.0); MONOCYTES % (AUTO) 17 % (0-12); NEUTROPHILS # (AUTO) 0.8 10^3/uL (1.8-7.8); NEUTROPHILS % (AUTO) 28 % (42-75); PLATELET COUNT 163 10^3/uL (130-400); WHITE BLOOD COUNT 2.7 10^3/uL (4.3-11.0)
[2022-12-04 17:01] LABS: ALBUMIN 3.2 GM/DL (3.2-4.5); CHLORIDE 112 MMOL/L (98-107); POTASSIUM 3.7 MMOL/L (3.6-5.0); SODIUM 144 MMOL/L (135-145)
[2022-12-04 17:02] LABS: CALCIUM 8.5 MG/DL (8.5-10.1)
[2022-12-04 17:03] LABS: GLUCOSE 91 MG/DL (70-105)
[2022-12-04 17:04] LABS: TOTAL PROTEIN 8.5 GM/DL (6.4-8.2)
[2022-12-04 17:05] LABS: BILIRUBIN,TOTAL 0.3 MG/DL (0.1-1.0); CARBON DIOXIDE 23 MMOL/L (21-32)
[2022-12-04 17:07] LABS: ALKALINE PHOSPHATASE 86 U/L (40-136); CREATININE SERUM 0.69 MG/DL (0.60-1.30); GFR ESTIMATED 118
[2022-12-04 17:09] LABS: BUN/CREATININE RATIO 7
[2022-12-04 17:10] LABS: ALANINE AMINOTRANSFERASE 121 U/L (0-55); SALICYLATE < 5.0 MG/DL (5.0-20.0)
[2022-12-04 17:16] LABS: BILIRUBIN,URINE NEGATIVE (NEGATIVE); CLARITY,URINE CLEAR; COLOR,URINE YELLOW; GLUCOSE, URINE (UA) NEGATIVE (NEGATIVE); KETONES,URINE 1+ (NEGATIVE); NITRITE,URINE NEGATIVE (NEGATIVE); PROTEIN,URINE NEGATIVE (NEGATIVE)
[2022-12-04 17:17] LABS: BACTERIA,URINE NEGATIVE /HPF; LEUKOCYTE ESTERASE ,URINE NEGATIVE (NEGATIVE)
[2022-12-04 17:19] LABS: AMPHETAMINE SCREEN, URINE NEGATIVE (NEGATIVE); BARBITURATE SCREEN URINE NEGATIVE (NEGATIVE); BENZODIAZEPINES SCREEN URINE POSITIVE (NEGATIVE); CANNABINOID SCREEN, URINE POSITIVE (NEGATIVE); COCAINE SCREEN URINE NEGATIVE (NEGATIVE); METHADONE STAT NEGATIVE (NEGATIVE); OPIATE SCREEN URINE NEGATIVE (NEGATIVE); OXYCODONE STAT NEGATIVE (NEGATIVE); PROPOXYPHENE STAT NEGATIVE (NEGATIVE); TRICYCLIC ANTIDEPRESSANTS SCRE NEGATIVE (NEGATIVE)
[2022-12-04 17:22] LABS: ACETAMINOPHEN < 10 UG/ML (10-30)
[2022-12-04 18:09] VITALS: BP 137/87
== END 2022-12-04 18:11 | disposition home or self-care (01) ==
LOC: ER 15:47 → EDUNIT# 15:47 → ER 18:11
DX: G24.9 Dystonia, unspecified (principal); Z72.0 Tobacco use
CPT/HCPCS: 80053; 80306; 81000; 85025; G0480 ×3; 36415; 80320; 80329; 96374; 96375

== ENCOUNTER 2022-12-04 19:52 | Emergency (ER) | payer SELFPAY ==
[2022-12-04] MEDS ORDERED: NS IV 1000 ML 1,000 ML IV STA (20:00)
--- NOTE | 2022-12-04 20:06 | ED General ---
General Stated Complaint: PSYCH/ETOH Source of Information: Patient Exam Limitations: No Limitations (SYBIL WHITING) History of Present Illness Date Seen by Provider: Dec 04, 2022 Time Seen by Provider: 20:03 Initial Comments Patient is a 42-year-old male who has a history of anxiety, depression and alcohol abuse who presents ED by EMS for alcohol intoxication and psych concerns. Patient was discharged from our facility 1 hour ago. There was concern for dystonia. Received phenobarbital and Benadryl. Patient was also evaluated by behavioral health and had lab work drawn. Patient found to have an alcohol level at 430. Patient states he was discharged home. His called and told EMS that the curtains was pulled down in the room and concerned that he may have attempted to hang himself. According to patient he states that this did not happen. Patient states he pulled down the curtains as he was upset. patient denies of any current suicidal or homicidal thoughts. States he has had a history of suicidal thoughts in the past. It was offered twice to go to detox from previous visit but patient refused. patient does not want inpatient psych. Patient does not want any current medication. Patient states this is all due to his depression and anxiety. He reports chronic alcohol use. Patient states he has been drinking daily since he was 16. Denies of any chest pain, shortness of breath, nausea, vomiting, diarrhea, tremoring (SYBIL WHITING) Allergies and Home Medications Allergies Coded Allergies: No Known Drug Allergies (Unverified , 10/07/22) Patient Home Medication List Home Medication List Reviewed: Yes (SYBIL WHITING) Hydrocodone/Acetaminophen (Hydrocodone-Acetamin 5-325 mg) 5 Mg-325 Mg Tablet, 1 TAB PO Q4H PRN for PAIN-MODERATE (5-7) Prescribed by: STORM TOPETE on 10/07/22 1632 Lorazepam (Ativan) 0.5 Mg Tablet, 0.5 MG PO UD Prescribed by: BEN PARSONS on 12/03/22 1100 Ondansetron (Ondansetron Odt) 4 Mg Tab.rapdis, 4 MG SL Q4H PRN for NAUSEA/VOMITING Prescribed by: STORM TOPETE on 10/07/22 1632 Tamsulosin HCl (Flomax) 0.4 Mg Cap, 0.4 MG PO DAILY Prescribed by: STORM TOPETE on 10/07/22 3422 Review of Systems Review of Systems Constitutional: No chills, No diaphoresis EENTM: No ear pain, No blurred vision, No double vision Respiratory: No cough, No dyspnea on exertion Cardiovascular: No chest pain Gastrointestinal: No abdominal pain, No diarrhea, No nausea, No vomiting Genitourinary: No decreased output, No discharge Musculoskeletal: No back pain, No joint pain Skin: No change in color Psychiatric/Neurological: Anxiety, Other (depression) (SYBIL WHITING) All Other Systems Reviewed Negative Unless Noted: Yes (SYBIL WHITING) Past Uzebyxz-Qiusxp-Onbmrz Hx Past Medical History Surgery/Hospitalization HX: SX: APPY, depression, anxiety (SYBIL WHITING) Physical Exam Vital Signs Vital Signs - First Documented 12/04/22 19:52 Temp 37.1 Pulse 97 Resp 16 B/P (MAP) 130/90 (103) Pulse Ox 96 O2 Delivery Room Air (BEN ROMAN MD) Vital Signs Capillary Refill : (SYBIL WHITING) Height, Weight, BMI Height: '" Weight: lbs. oz. kg; BMI Method: General Appearance: No Apparent Distress, WD/WN Eyes: Bilateral Eye Normal Inspection, Bilateral Eye PERRL, Bilateral Eye EOMI HEENT: PERRL/EOMI, TMs Normal, Normal ENT Inspection, Pharynx Normal Neck: Full Range of Motion, Normal Inspection, Non Tender, Supple Respiratory: Chest Non Tender, Lungs Clear, Normal Breath Sounds, No Accessory Muscle Use, No Respiratory Distress Cardiovascular: Regular Rate, Rhythm, No Edema, No Gallop, No JVD Gastrointestinal: Normal Bowel Sounds, No Organomegaly, No Pulsatile Mass Back: Normal Inspection, No CVA Tenderness, No Vertebral Tenderness Extremity: Normal Capillary Refill, Normal Inspection, Normal Range of Motion Neurologic/Psychiatric: Alert, Oriented x3, No Motor/Sensory Deficits, Normal 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, 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 as Tested Skin: Normal Color, Warm/Dry (SYBIL WHITING) Progress/Results/Core Measures Suspected Sepsis SIRS Temperature: Pulse: Respiratory Rate: Blood Pressure / Mean: Laboratory Tests 8/2/23 20:10: Creatinine 0.69, Total Bilirubin 0.4 (SYBIL WHITING) Results/Orders Lab Results Laboratory Tests Test 12/04/22 20:10 Range/Units Sodium Level 146 H 135-145 MMOL/L Potassium Level 3.8 3.6-5.0 MMOL/L Chloride Level 114 H 98-107 MMOL/L Carbon Dioxide Level 23 21-32 MMOL/L Anion Gap 9 5-14 MMOL/L Blood Urea Nitrogen 5 L 7-18 MG/DL Creatinine 0.69 0.60-1.30 MG/DL Estimat Glomerular Filtration Rate 118 BUN/Creatinine Ratio 7 Glucose Level 94 70-105 MG/DL Calcium Level 8.4 L 8.5-10.1 MG/DL Corrected Calcium 9.0 8.5-10.1 MG/DL Total Bilirubin 0.4 0.1-1.0 MG/DL Aspartate Amino Transf (AST/SGOT) 145 H 5-34 U/L Alkaline Phosphatase 86 40-136 U/L Total Protein 8.4 H 6.4-8.2 GM/DL Albumin 3.2 3.2-4.5 GM/DL Lipase 99 H 8-78 U/L Serum Alcohol 403 *H <10 MG/DL (BEN ROMAN MD) Vital Signs/I&O 12/04/22 12/04/22 19:52 21:58 Temp 37.1 37.1 Pulse 97 88 Resp 16 16 B/P (MAP) 130/90 (103) 128/78 Pulse Ox 96 97 O2 Delivery Room Air Room Air (BEN ROMAN MD) Vital Signs/I&O Capillary Refill : (SYBIL WHITING) Departure Communication (PCP) Patient brought to the ED by EMS for potential suicidal attempt. According to EMS patient has been noted that the curtains were ripped down in the room. was concerned that patient may have attempted to hang himself. Patient denies this. Patient has been seen twice over the past 36 hours for pysch and alcohol abuse. Patient was seen 1 hour before arrival for potential dystonia. Patient received Benadryl and phenobarbital. Symptoms seem to be improving but there was concern for potential psych component to his behavior. Patient was evaluated by behavioral health twice and patient was refusing any type of treatment. Patient denied of any suicidal and homicidal thoughts. History of suicidal thoughts in the past none currently. No evidence of active hallucinations. Patient appears intoxicated. the patient has been offered detox but patient is not wanting to detox. Patient is not wanting inpatient psych or evaluation. Patient is wanting to sleep. Discussed with patient we will recheck his chemistry and alcohol level and provide IV fluids at this time as he is not wanting any further care. Patient is here by himself. Patient did receive a liter of fluid. Chemistry was grossly unremarkable and fairly similar to his previous lab work with elevated liver enzymes and lipase at 96. Patient is wanting to be discharged. Contacted patient's who did not answer. Patient became agitated and stormed out of the room at discharge. Patient does not have a vehicle at this time. (SYBIL WHITING) Impression Primary Impression: Alcohol abuse Disposition: 01 HOME, SELF-CARE Condition: Stable Departure-Patient Inst. Decision time for Depature: 21:49 (SYBIL WHITING) Referrals: [facility],LOCAL PHYSICIAN (PCP) Primary Care Physician Patient Instructions: Alcohol Use Disorder (DC) Add. Discharge Instructions: Provided [facility] resources. Strongly recommend considering following up with [facility]. ATTENDING PHYSICIAN NOTE: I was physically present as attending physician in the emergency department during the care of this patient. I discussed this case in brief with both STORM Napier during this visit and with Dr. Kenny as patient was being discha rged from his prior visit. Patient did not appear to have any emergent medical need during this visit. Patient was discharged from the emergency room. He was observed by this provider to be belligerent on discharge. He kicked a rolling stool against the wall and briskly walked out of the ER cursing loudly at staff. I did not personally interview or examine this patient during this ER stay, and I was not otherwise not directly involved in the decision making or delivery of care for this patient. (BEN ROMAN MD) SYBIL WHITING Dec 04, 2022 20:06 BEN ROMAN MD Dec 04, 2022 22:30
[2022-12-04 21:10] LABS: ALBUMIN 3.2 GM/DL (3.2-4.5); POTASSIUM 3.8 MMOL/L (3.6-5.0)
[2022-12-04 21:12] LABS: CALCIUM 8.4 MG/DL (8.5-10.1)
[2022-12-04 21:13] LABS: TOTAL PROTEIN 8.4 GM/DL (6.4-8.2)
[2022-12-04 21:15] LABS: BILIRUBIN,TOTAL 0.4 MG/DL (0.1-1.0)
[2022-12-04 21:17] LABS: CREATININE SERUM 0.69 MG/DL (0.60-1.30)
[2022-12-04 21:58] VITALS: BP 128/78
== END 2022-12-04 21:58 | disposition home or self-care (01) ==
LOC: EDUNIT# 19:52 → ER 19:54
DX: F10.129 Alcohol abuse with intoxication, unspecified (principal); Y90.8 Blood alcohol level of 240 mg/100 ml or more
CPT/HCPCS: 80053; 83690; G0480; 36415; 80320; 96360; 99285